=== PATIENT | male | born 1955 | race Hispanic/Latino ===

== ENCOUNTER 2017-07-04 12:20 | Emergency (ER) | payer OTHER ==
[2017-07-04 12:38] VITALS: RESP 18; TEMP 98; O2SAT 95; BMI 29.9
[2017-07-04 13:34] VITALS: BP 125/85; PULSE 66
--- NOTE | 2017-07-04 14:02 | ED PDOC ---
Arrival/HPI - General Chief Complaint: Lower Extremity Problem/Injury Time Seen by Provider: 07/04/17 12:28 Historian: Patient - History of Present Illness Narrative History of Present Illness (Text): 07/04/17 13:52 61yo male who present to ED for swelling to his right lower anterior leg x 10days. States swelling started after he was kicked to the area during soccer game. States the discoloration improved, but he still have the swelling to the area. Admits to very mild pain to the area. Denies chest pain, SOB, diaphoresis , fever, nausea, vomiting, any other complaint. Past Medical History - Provider Review Nursing Documentation Reviewed: Yes - Hematological/Oncological Hx Blood Disorders: Yes Other/Comment: Blood Clot. - Psychiatric Hx Psychophysiologic Disorder: No Hx Substance Use: No - Surgical History Other/Comment: LLE and Rt. wrist Family/Social History - Physician Review Nursing Documentation Reviewed: Yes Family/Social History: Unknown Family HX Smoking Status: Never Smoked Hx Alcohol Use: Yes Frequency of alcohol use: Socially Hx Substance Use: No Allergies/Home Meds Allergies/Adverse Reactions: Allergies No Known Allergies Allergy (Verified 07/04/17 12:39) Home Medications: Home Meds Medication Instructions Recorded Confirmed No Known Home Med 07/04/17 07/04/17 Review of Systems - Physician Review All systems were reviewed & negative as marked: Yes - Review of Systems Constitutional: Normal Eyes: Normal ENT: Normal Respiratory: Normal Cardiovascular: Normal Gastrointestinal: Normal Genitourinary Male: Normal Musculoskeletal: Arthralgias (right lower leg swelling) Skin: Normal Neurological: Normal Endocrine: Normal Hemo/Lymphatic: Normal Psychiatric: Normal Physical Exam Vital Signs Reviewed: Yes Vital Signs Temp Pulse Resp BP Pulse Ox 07/04/17 13:33 66 18 125/85 95 07/04/17 12:33 98.0 F 70 18 136/74 95 Temperature: Afebrile Blood Pressure: Normal Pulse: Regular Respiratory Rate: Normal Appearance: Positive for: Well-Appearing, Non-Toxic, Comfortable Pain Distress: None Mental Status: Positive for: Alert and Oriented X 3 - Systems Exam Head: Present: Atraumatic, Normocephalic Pupils: Present: PERRL Extroacular Muscles: Present: EOMI Conjunctiva: Present: Normal Mouth: Present: Moist Mucous Membranes Neck: Present: Normal Range of Motion Respiratory/Chest: Present: Clear to Auscultation, Good Air Exchange. No: Respiratory Distress, Accessory Muscle Use Cardiovascular: Present: Regular Rate and Rhythm, Normal S1, S2. No: Murmurs Abdomen: Present: Normal Bowel Sounds. No: Tenderness, Distention, Peritoneal Signs Back: Present: Normal Inspection Upper Extremity: Present: Normal Inspection. No: Cyanosis, Edema Lower Extremity: Present: Normal ROM, Swelling (approximately 6 x 6cm hematoma noted to anterior proximal right lower leg). No: Edema, Cyanosis, Teofilo's Sign , Tenderness Neurological: Present: GCS=15, CN II-XII Intact, Speech Normal Skin: Present: Warm, Dry, Normal Color. No: Rashes Psychiatric: Present: Alert, Oriented x 3, Normal Insight, Normal Concentration Medical Decision Making ED Course and Treatment: 07/04/17 14:07 PT in ED for stated history. He is hemodynamially stable and in no distress. Doppler US was done to r/o DVT - and preliminary report was negative - RAD Interpretation Radiology Orders: 07/04/17 12:40 DUPLEX LOWER EXTRM VEIN RIGHT [US] Stat Disposition/Present on Arrival - Present on Arrival Any Indicators Present on Arrival: No History of DVT/PE: No History of Uncontrolled Diabetes: No Urinary Catheter: No History of Decub. Ulcer: No History Surgical Site Infection Following: None - Disposition Have Diagnosis and Disposition been Completed?: Yes Diagnosis: Hematoma and contusion Disposition: HOME/ ROUTINE Disposition Time: 14:05 Patient Plan: Discharge Condition: STABLE Discharge Instructions (ExitCare): Hematoma (ED) Additional Instructions: Apply ice to area Follow up with your Doctor Return to ED for any new or worsening symptoms Referrals: [facility] at [facility] [place] [Outside] - Follow up with primary Forms: [employer] ([place] [employer])
--- NOTE | 2017-07-04 18:48 | US ---
PROCEDURE: Right lower extremity venous US HISTORY: Leg pain and swelling. Evaluate for DVT. PHYSICIAN(S): Gonzalo Harkins M.D. TECHNIQUE: Duplex sonography and color-flow Doppler with graded compression were used to evaluate the deep venous system of the right lower extremity. FINDINGS: The visualized deep venous system of the right lower extremity is sonographically normal and compressible. Normal waveforms and augmentation are seen. There is no sonographic evidence for deep venous thrombosis in the visualized segments of the right lower extremity. There is a 2.1 x 4.9 cm heterogeneous collection in the right calf. This may represent a sequela of trauma IMPRESSION: 1. No sonographic evidence for deep venous thrombosis in the visualized segments of the right lower extremity. 2. 2.1 x 4.9 cm heterogeneous hypoechoic area in the right calf. This may represent hematoma.
== END 2017-07-04 14:12 | disposition home or self-care (01) ==
LOC: ED 12:20
DX: S80.11XA Contusion of right lower leg, initial encounter (principal); W50.1XXA Accidental kick by another person, initial encounter; Y93.66 Activity, soccer